=== PATIENT | female | born 1965 | race African-American/Black ===

== ENCOUNTER 2020-04-06 19:22 | Emergency (ER) | payer OTHER ==
[2020-04-06 23:08] LABS: SARS-COV-2 RT PCR POSITIVE (NEGATIVE)
--- NOTE | 2020-04-06 23:17 | ER ---
Nurse's Notes [facility] Name: Sharon Johnson Age: 54 yrs Sex: Female : 1965 Arrival Date: 04/06/2020 Time: 19:30 Bed 4 Private MD: Diagnosis: Coronavirus infection, unspecified Presentation: 04/06 19:42 Chief complaint: Patient states: Cough, chest congestion, fatigue, body aches since ll1 24. Coronavirus screen: Client denies travel out of the [place] in the last 14 days. congestion, cough unrelated to allergies, fatigue, Client presents with at least one sign or symptom that may indicate coronavirus-19. Standard/surgical mask placed on the client. Ebola Screen: Patient denies travel to an Ebola-affected area in the 21 days before illness onset. Initial Sepsis Screen: Does the patient meet any 2 criteria? No. Patient's initial sepsis screen is negative. Does the patient have a suspected source of infection? Yes: Productive cough/pneumonia. Risk Assessment: Do you want to hurt yourself or someone else? Patient reports no desire to harm self or others. Onset of symptoms was March 28, 2020. 19:42 Method Of Arrival: Ambulatory ll1 19:42 Acuity: YOKO 4 ll1 Triage Assessment: 19:42 General: Appears in no apparent distress. Behavior is calm, cooperative, appropriate ll1 for age. Pain: Denies pain. Neuro: No deficits noted. Cardiovascular: Reports fatigue, Clubbing of nail beds is absent Patient's skin is warm and dry. Respiratory: Reports cough that is Airway is patent Trachea midline Respiratory effort is even, unlabored, Respiratory pattern is regular, symmetrical. GI: No deficits noted. Musculoskeletal: Reports generalized body aches. Historical: - Allergies: 19:43 Bactrim; ll1 - PMHx: 19:43 None; ll1 - PSHx: 19:43 None; ll1 - Immunization history:: Flu vaccine is not up to date. - Social history:: Smoking status: Patient denies any tobacco usage or history of. Screenin:01 Abuse screen: Denies threats or abuse. Denies injuries from another. Nutritional rr5 screening: No deficits noted. Tuberculosis screening: No symptoms or risk factors identified. Fall Risk None identified. Total Dunbar Fall Scale indicates No Risk (0-24 pts). Assessment: 21:26 General: Appears in no apparent distress. comfortable, Behavior is calm, cooperative. mg2 Pain: Complains of pain in whole body. Neuro: Cardiovascular: Capillary refill < 3 seconds Patient's skin is warm and dry. Respiratory: Airway is patent Respiratory effort is even, unlabored, Respiratory pattern is regular, symmetrical. Respiratory: Reports cough that is. GI: No signs and/or symptoms were reported involving the gastrointestinal system. : No signs and/or symptoms were reported regarding the genitourinary system. EENT: No signs and/or symptoms were reported regarding the EENT system. Derm: Skin is intact, is healthy with good turgor, Skin is pink, warm \T\ dry. normal. Musculoskeletal: Circulation, motion, and sensation intact. Capillary refill < 3 seconds. 23:27 Reassessment: Patient and/or family updated on plan of care and expected duration. Pain mg2 level reassessed. Vital Signs: 19:42 BP 137 / 87; Pulse 81; Resp 16; Temp 98.7; Pulse Ox 100% ; Weight 74.84 kg; Height 5 ll1 ft. 7 in. (170.18 cm); Pain 0/10; 23:05 BP 127 / 80; Pulse 80; Resp 18; Pulse Ox 100% on R/A; mg2 19:42 Body Mass Index 25.84 (74.84 kg, 170.18 cm) ll1 ED Course: 19:30 Patient arrived in ED. rg4 19:43 Triage completed. ll1 19:44 Arm band placed on. ll1 20:58 Red Delgado, JC is Primary Nurse. mg2 20:59 Héctor Grover PA is PHCP. cp 20:59 Roddy Maldonado MD is Attending Physician. cp 21:01 Patient has correct armband on for positive identification. Bed in low position. Call rr5 light in reach. Pulse ox on. NIBP on. 21:26 No provider procedures requiring assistance completed. COVID swab sent to lab. Flu mg2 and/or RSV swab sent to lab. Strep swab sent to lab. Patient did not have IV access during this emergency room visit. 21:59 XRAY Chest (1 view) In Process Unspecified. EDMS Administered Medications: No medications were administered Outcome: 23:16 Discharge ordered by . cp 23:28 Discharged to home ambulatory. mg2 23:28 Condition: stable 23:28 Discharge instructions given to patient, Instructed on discharge instructions, follow up and referral plans. medication usage, Demonstrated understanding of instructions, follow-up care, medications, Prescriptions given X 3. 23:28 Patient left the ED. mg2 Signatures: Dispatcher [employer] EDMS Héctor Grover PA PA cp Garcia, Rubi rg4 Red Delgado RN RN mg2 Kleber Sahu RN RN rr5 Mitchell Russell RN RN ll1
--- NOTE | 2020-04-06 23:17 | EDPHYS ---
Physician Documentation [facility] Name: Sharon Johnson Age: 54 yrs Sex: Female : 1965 Arrival Date: 04/06/2020 Time: 19:30 Bed 4 Private MD: ED Physician Roddy Maldonado HPI: 04/06 21:31 This 54 yrs old Black Female presents to ER via Ambulatory with complaints of Cough. cp 21:31 Onset: The symptoms/episode began/occurred 9 day(s) ago. Associated signs and symptoms: cp Pertinent positives: fatigue, Pertinent negatives: diarrhea, fever, sore throat, vomiting. Historical: - Allergies: 19:43 Bactrim; ll1 - PMHx: 19:43 None; ll1 - PSHx: 19:43 None; ll1 - Immunization history:: Flu vaccine is not up to date. - Social history:: Smoking status: Patient denies any tobacco usage or history of. ROS: 21:35 Constitutional: Negative for body aches, chills, fever, poor PO intake. cp 21:35 Eyes: Negative for injury, pain, redness, and discharge. cp 21:35 ENT: Negative for ear pain, sore throat, difficulty swallowing, difficulty handling secretions. 21:35 Cardiovascular: Negative for chest pain, edema, palpitations. 21:35 Respiratory: Positive for cough, with no reported sputum, Negative for shortness of breath, wheezing. 21:35 Abdomen/GI: Negative for abdominal pain, nausea, vomiting, and diarrhea. 21:35 Neuro: Negative for altered mental status, headache, weakness. 21:35 All other systems are negative. Exam: 21:40 Constitutional: The patient appears in no acute distress, alert, awake, cp non-diaphoretic, non-toxic, well developed, well nourished. 21:40 Head/Face: Normocephalic, atraumatic. cp 21:40 Eyes: Periorbital structures: appear normal, Conjunctiva: normal, no exudate, no injection, Sclera: no appreciated abnormality, Lids and lashes: appear normal, bilaterally. 21:40 ENT: External ear(s): are unremarkable, Nose: is normal, Mouth: Lips: moist, Oral mucosa: moist, Posterior pharynx: Airway: no evidence of obstruction, patent. 21:40 Neck: Lymph nodes: no appreciated lymphadenopathy. 21:40 Chest/axilla: Inspection: normal, Palpation: is normal, no crepitus, no tenderness. 21:40 Cardiovascular: Rate: normal, Rhythm: regular, Edema: is not appreciated, JVD: is not appreciated. 21:40 Respiratory: the patient does not display signs of respiratory distress, Respirations: normal, no use of accessory muscles, no retractions, labored breathing, is not present, Breath sounds: are clear throughout, no decreased breath sounds, no stridor, no wheezing. 21:40 Abdomen/GI: Exam negative for discomfort, distension, guarding, Inspection: abdomen appears normal. Vital Signs: 19:42 BP 137 / 87; Pulse 81; Resp 16; Temp 98.7; Pulse Ox 100% ; Weight 74.84 kg; Height 5 ll1 ft. 7 in. (170.18 cm); Pain 0/10; 23:05 BP 127 / 80; Pulse 80; Resp 18; Pulse Ox 100% on R/A; mg2 19:42 Body Mass Index 25.84 (74.84 kg, 170.18 cm) ll1 MDM: 21:14 Patient medically screened. cp 22:00 Differential Diagnosis: Bronchitis Influenza Upper Respiratory Infection Pneumonia. cp 23:15 Data reviewed: vital signs, nurses notes, lab test result(s), radiologic studies, plain cp films. 23:15 Counseling: I had a detailed discussion with the patient and/or guardian regarding: the cp historical points, exam findings, and any diagnostic results supporting the discharge/admit diagnosis, lab results, radiology results, to return to the emergency department if symptoms worsen or persist or if there are any questions or concerns that arise at home. ED course: VSS. Patient appears non-toxic and no signs of respiratory distress. Will discharge to home for continued monitoring. 04/06 21:15 Order name: XRAY Chest (1 view) cp 04/06 21:15 Order name: Strep; Complete Time: 23:12 cp 04/06 22:26 Order name: Throat Culture EDMS 04/06 23:08 Order name: COVID-19/FLU A+B; Complete Time: 23:12 EDMS Administered Medications: No medications were administered Disposition: 04/07 07:19 Co-signature as Attending Physician, Roddy Maldonado MD I agree with the assessment and tw4 plan of care. Disposition: 04/06/20 23:16 Discharged to Home. Impression: Coronavirus infection, unspecified. - Condition is Stable. - Discharge Instructions: COVID-19. - Prescriptions for Zithromax Z- Jose Enrique 250 mg Oral Tablet - take 1 tablet by ORAL route as directed for 5 days Day 1 - take two (2) tablets one time. Day 2, 3, 4 , 5 take one (1) tablet once daily.; 6 tablet. Tessalon Perles 100 mg Oral Capsule - take 2 capsule by ORAL route every 8 hours As needed; 20 capsule. Medrol (Jose Enrique) 4 mg Oral Tablets, Dose Pack - take 1 tablet by ORAL route as directed - follow package instructions; 1 packet. - Medication Reconciliation Form, Thank You Letter, Antibiotic Education, Prescription Opioid Use, Work release form form. - Follow up: Private Physician; When: 2 - 3 days; Reason: Worsening of condition. - Problem is new. - Symptoms are unchanged. Signatures: Dispatcher [employer] EDAZ Héctor Grover PA PA cp Roddy Maldonado MD MD tw4 Red Delgado, RN RN mg2 Mitchell Russell RN RN ll1 Corrections: (The following items were deleted from the chart) 04/06 21:47 21:15 Influenza Screen (A \T\ B)+BA.LAB.BRZ ordered. EDAZ EDMS 21:48 21:15 CORONAVIRUS+MR.LAB.BRZ ordered. EDAZ EDMS 23:28 23:16 04/06/2020 23:16 Discharged to Home. Impression: Coronavirus infection, mg2 unspecified. Condition is Stable. Forms are Medication Reconciliation Form, Thank You Letter, Antibiotic Education, Prescription Opioid Use. Follow up: Private Physician; When: 2 - 3 days; Reason: Worsening of condition. Problem is new. Symptoms are unchanged. cp
[2020-04-07 00:02] VITALS: TEMP 98.7; O2SAT 100
[2020-04-07 00:10] VITALS: BP 127/80
--- NOTE | 2020-04-07 12:11 | RAD REPORT ---
EXAM DESCRIPTION: RAD - Chest Single View - 04/06/2020 9:55 pm CLINICAL HISTORY: COUGH Chest pain. COMPARISON: Chest Single View dated 05/24/2017; CHEST PA AND LAT 2 VIEW dated 03/06/2013 FINDINGS: Portable technique limits examination quality. Interstitial lung markings are mildly prominent. No focal consolidation typical of pneumonia seen. Th e heart is normal in size. No displaced fractures. IMPRESSION: Mildly prominent interstitial lung markings likely representing bronchitis or viral infe ction.
== END 2020-04-06 23:28 | disposition home or self-care (01) ==
LOC: ER 19:22
DX: U07.1 COVID-19 (principal); Z88.1 Allergy status to other antibiotic agents
CPT/HCPCS: 87070; 87081; 0240U; 71045; 99284